=== PATIENT | male | born 1945 | race Caucasian/White ===

== ENCOUNTER → 2018-08-11 | Outpatient (REF) | payer MEDICARE ==
[~2018-08-11] MED LIST: AVELOX400 MG PO; BENADRYL 50MG C50 MG PO; CARISOPRODOL350 MG PO; CHILD ASA81 MG PO; CO Q-10400 MG OR; COZAAR50 MG OR; FINASTERIDE5 MG PO; FISH OIL500 MG OR; FLUTICASONE50 MCG; FUROSEMIDE20 MG PO; LANTUS100 MG/ML SC; MEDDOSEPAK PO; MELOXICAM7.5 MG OR; METAMUCIL0.52 GM OR; METFORMIN500 MG PO; METO100T50 PO; NAPROSYN500 MG PO; NASONEX50 MCG/AC; NEXIUM40 M1 OR; OMEPRAZOLE40 MG; OMEPRAZOLE40 MG PO; OXYCO/APAP1 TA5 OR; PATANASE0.6 %; PEPCID20 MG PO; PRAVASTATIN20 MG PO; PROSCAR OR; SIMVASTATIN20 MG OR; SYMBICORT1 AE1 IN; TRAMADOL HCL50 MG PO; VENTOLIN HFA IN; ZYRTEC10 MG PO
[2018-08-11 09:54] LABS: HEMATOCRIT 46.1 % (39.0-50.0); HEMOGLOBIN 14.7 g/dl (14.0-18.0); MEAN CELL VOLUME 87.1 fL CALC (80.0-100.0); MEAN CORPUSCULAR HGB 27.8 pG CALC (26.0-32.0); MEAN CORPUSCULAR HGB CONC 31.9 g/L CALC (32.0-36.0); RED BLOOD COUNT 5.29 mill/uL (4.70-6.10); RED CELL DISTRI WIDTH 14.9 % (11.5-15.5)
[2018-08-11 11:39] LABS: ALKALINE PHOSPHATASE 68 u/l (38-126); ANION GAP 15 (6-22 (CALC)); BILIRUBIN, TOTAL 1.2 mg/dL (0.0-1.4); BUN 16 mg/dL (8-23); BUN/CREATININE RATIO 14 (12-20 (CALC)); CARBON DIOXIDE 25 mmol/l (22-30); CHLORIDE 104 mmol/l (95-108); CREATININE 1.2 mg/dL (0.7-1.3); GFR 59 ML/MIN (>=60 (CALC)); GFR FOR AFR.AMER. > 60 ML/MIN (>=60 (CALC)); POTASSIUM 4.5 mmol/l (3.5-5.1); SGOT/AST 20 u/l (19-48); SODIUM 139 mmol/l (137-146); TOTAL PROTEIN 7.1 g/dL (6.3-8.2)
[2018-08-11 12:01] LABS: TSH, 3RD GENERATION 3.49 uIU/mL (0.47 - 4.68)
== END | disposition home or self-care (01) ==
LOC: LAB 08:30
PROVIDERS: ATTEND Nurse Practitioner
DX: E11.42 Type 2 diabetes mellitus with diabetic polyneuropathy (principal); I10 Essential (primary) hypertension; Z79.4 Long term (current) use of insulin

== ENCOUNTER 2022-04-15 02:47 | Emergency (ER) | payer MEDICARE ==
[2022-04-15] VITALS (19 sets, daily range): BP systolic 84–144; BP diastolic 49–89
[~2022-04-15] VITALS: Ht 182.9 cm; Wt 147.2 kg
[2022-04-15 03:25] LABS: IMMATURE GRANULOCYTES 0.4 % (0.0-5.0); MEAN CORPUSCULAR HGB 26.4 pG CALC (26.0-32.0); MEAN CORPUSCULAR HGB CONC 30.8 g/dL CAL (32.0-36.0); NEUT# 9.1 thou/uL (1.82-7.42); RED BLOOD COUNT 4.84 mill/uL (4.70-6.10); RED CELL DISTRI WIDTH 15.4 % (11.5-15.5)
[2022-04-15] MEDS ORDERED: NORVASC5 M1 PO (03:25)
[2022-04-15] MEDS ORDERED: TRELEGY ELLIPTA1 AER (03:26)
[2022-04-15] MEDS ORDERED: TAMSULOSIN HCL0.4 MG PO (03:27)
[2022-04-15] MEDS ORDERED: SUCRALFATE1 GM PO (03:28)
[2022-04-15 03:39] LABS: ALBUMIN 3.8 g/dL (3.2-5.0); CREATININE 1.5 mg/dL (0.7-1.3); POTASSIUM 3.8 mmol/l (3.5-5.1); TOTAL PROTEIN 7.2 g/dL (6.3-8.2)
[2022-04-15 03:41] LABS: HEMATOCRIT 41.6 % (39.0-50.0); HEMOGLOBIN 12.8 g/dl (14.0-18.0)
[2022-04-15 03:46] LABS: BILIRUBIN, TOTAL 1.2 mg/dL (0.0-1.4); D-DIMER 1.89 mg/L (0.19-0.60)
[2022-04-15 03:52] LABS: INTERNATIONAL NORMALIZED RATIO 1.1 RATIO (0.7-1.3); PROTHROMBIN TIME 10.8 SECONDS (9.0-12.5)
== END 2022-04-15 07:15 | disposition short-term general hospital (02) ==
LOC: ED 02:47
PROVIDERS: Family Medicine
DX: I21.4 Non-ST elevation (NSTEMI) myocardial infarction (principal); J44.1 Chronic obstructive pulmonary disease with (acute) exacerbation; E11.9 Type 2 diabetes mellitus without complications; I10 Essential (primary) hypertension; Z95.5 Presence of coronary angioplasty implant and graft; Z79.4 Long term (current) use of insulin; Z20.822 Contact with and (suspected) exposure to COVID-19
CPT/HCPCS: J1644